=== PATIENT | female | born 1955 | race Caucasian/White ===

== ENCOUNTER 2022-01-11 11:56 | Outpatient (CLI) | payer MEDICARE, MEDICAID, SELFPAY ==
--- NOTE | ~2022-01-11 | XR_ITS ---
EXAMINATION: XR foot LT standing 2V DATE: 01/11/2022 12:56 INDICATION: Arthropathic psoriasis TECHNIQUE: 1. Standing dorsoplantar and lateral views of the left foot were obtained. 2. Standing dorsoplantar and lateral views of the right foot were obtained. COMPARISON: None. FINDINGS: Normal alignment at the bilateral feet. No fracture. Mild polyarticular osteoarthritis with typical d iscrete lesion at the bilateral first metatarsophalangeal joints and a few tarsometatarsal and interp halangeal joints. 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 No other erosions identified. Bilateral small plantar calcaneal spurs. IMPRESSION: 1. 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 2. Typical pattern of relatively symmetric mild polyarticular osteoarthritis in the mid and forefeet. Reviewed, dictated and finalized at location B. IMPRESSION: 1. 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 2. Typical pattern of relatively symmetric mild polyarticular osteoarthritis in the mid and forefeet.
--- NOTE | ~2022-01-11 | XR_ITS ---
EXAMINATION: XR sacroiliac joints min 3V DATE: 01/11/2022 12:56 INDICATION: Arthropathic psoriasis, unspecified. TECHNIQUE: 3 views of the sacroiliac joints were obtained. COMPARISON: None. FINDINGS: Bone alignment is normal. No fracture. The sacroiliac joints are normal. IMPRESSION: 1. Normal sacroiliac joints. No evidence of inflammatory arthropathy. Reviewed, dictated and finalized at location A.
--- NOTE | ~2022-01-11 | XR_ITS ---
EXAMINATION: XR hand BI arthritis min 3V DATE: 01/11/2022 12:56 INDICATION: Unspecified osteoarthritis, unspecified site. TECHNIQUE: 4 views of right hand and 4 views of left hand on 7 radiographs were obtained. COMPARISON: None. FINDINGS: RIGHT HAND: Bone alignment is normal. No fracture. There is moderate osteoarthritis of first carpomet acarpal joint and first interphalangeal joint and mild osteoarthritis of second and fifth distal inte rphalangeal joints. LEFT HAND: Bone alignment is normal. Trapezium is absent. No fracture. There is moderate osteoarthrit is of first interphalangeal joint and mild osteoarthritis of second, third, and fifth distal interpha langeal joints. IMPRESSION: 1. Polyarticular osteoarthritis. 2. Absent left trapezium. Reviewed, dictated and finalized at location A.
[2022-01-11 13:30] LABS: Rheumatoid Factor < 8.6 IU/ML (<12)
[2022-01-11 14:33] LABS: Hepatitis C Virus Antibody Negative (Negative)
[2022-01-13 15:51] LABS: NIL 0.04 IU/mL; Quantiferon TB Plus, 1T NEGATIVE (NEGATIVE); TB2-NIL 0.07 IU/mL
[2022-01-15 11:49] LABS: Anti Cyclic Citrullinated Pept <16 Units (<20)
== END 2022-01-11 11:57 | disposition home or self-care (01) ==
PROVIDERS: PCP Family Medicine; Visit Provider Internal Medicine
DX: L40.50 Arthropathic psoriasis, unspecified (principal); L40.9 Psoriasis, unspecified; M19.90 Unspecified osteoarthritis, unspecified site; Z71.89 Other specified counseling; Z79.899 Other long term (current) drug therapy; M19.041 Primary osteoarthritis, right hand; M19.042 Primary osteoarthritis, left hand
CPT/HCPCS: 36415; 72202; 73130; 73620; 86038; 86200; 86430; 86480; 86803